=== PATIENT | female | born 1970 | race Caucasian/White ===

== ENCOUNTER 2019-07-01 19:42 | Inpatient (IN) | payer BC, OTHER ==
[~2019-07-01] VITALS: Ht 152.4 cm; Wt 66.0 kg
[~2019-07-01 19:42] MED LIST: CYCL-1 PO
[2019-07-01] MEDS ORDERED: ondansetron/PF 4mg/2ml inj IV ONE (20:40)
[2019-07-01] MEDS ORDERED: CefTRIAXone/D5W-Rocephin 1gm 50 ML IV ONE (20:40)
[2019-07-01 21:05] LABS: BASOPHILS % (AUTO) 0.1 % (0-1); EOSINOPHILS # (AUTO) 0.2 X10'3 (0-0.9); EOSINOPHILS % (AUTO) 2.3 % (0-6); HEMATOCRIT 39.1 % (35.0-45.0); HEMOGLOBIN 13.5 g/dl (12.0-16.0); LYMPHOCYTES # (AUTO) 0.4 X10'3 (1.1-4.8); LYMPHOCYTES % (AUTO) 4.5 % (21-51); MEAN CORPUSCULAR HEMOGLOBIN 31.9 PG (27.0-31.0); MEAN CORPUSCULAR HGB CONC 34.5 g/dL (33.0-36.5); MEAN CORPUSCULAR VOLUME 92.3 FL (78-98); MEAN PLATELET VOLUME 7.2 FL (7.4-10.4); MONOCYTES # (AUTO) 0.7 X10'3 (0-0.9); MONOCYTES % (AUTO) 7.5 % (2-12); NEUTROPHILS % (AUTO) 85.6 % (42-75); PLATELET COUNT 250 X10'3 (140-440); RED BLOOD COUNT 4.24 X10'6 (4.20-5.60); RED CELL DISTRIBUTION WIDTH 12.4 % (11.5-14.5); WHITE BLOOD COUNT 9.3 X10'3 (4.5-11.0)
[2019-07-01 21:29] LABS: ALANINE AMINOTRANSFERASE 52 U/L (12-78); ALBUMIN 3.1 G/DL (3.4-5.0); ALBUMIN/GLOBULIN RATIO 0.6 (1.1-1.5); ALKALINE PHOSPHATASE 116 IU/L (46-116); ANION GAP 10 (8-16); ASPARTATE AMINO TRANSFERASE 45 U/L (10-37); BILIRUBIN,TOTAL 0.5 MG/DL (0.1-1.0); BLOOD UREA NITROGEN 12 MG/DL (7-18); CALCIUM 9.6 MG/DL (8.5-10.1); CHLORIDE 99 MMOL/L (99-107); CREATININE 1.09 MG/DL (0.40-0.90); GLUCOSE 129 MG/DL (70-104); MAGNESIUM 1.9 MG/DL (1.5-2.4); POTASSIUM 3.7 MMOL/L (3.5-5.1); SODIUM 133 MMOL/L (135-145); TOTAL CARBON DIOXIDE 23.7 MMOL/L (24-32); eGFR 53 ML/MIN
[2019-07-01 21:41] LABS: PARTIAL THROMBOPLASTIN TIME 29 SECONDS (22-32)
[2019-07-01] MEDS ORDERED: normal saline 1000ML IV soln IV ONE (21:50)
[2019-07-01] MEDS ORDERED: acetaminophen 325mg tablet PO ONE (21:50)
[2019-07-01 22:22] LABS: CLARITY,URINE CLEAR (Clear); COLOR,URINE YELLOW (Yellow); GLUCOSE, URINE NEGATIVE (Neg); KETONES,URINE NEGATIVE (Neg); LEUKOCYTE ESTERASE ,URINE NEGATIVE (Neg); NITRITES, URINE NEGATIVE (Neg); OCCULT BLOOD,URINE MODERATE (Neg); PROTEIN,URINE TRACE mg/dl (Neg)
[2019-07-01 22:23] LABS: URINE HCG NEGATIVE (NEG)
[2019-07-01 22:29] LABS: UA COLLECTION TYPE CLN CATCH MIDSTREAM
[2019-07-01 22:30] LABS: BACTERIA,URINE NONE SEEN /HPF (Neg); MUCUS STRANDS FEW /LPF (Neg); RBC,URINE 0-2 /HPF (0-2); SQUAMOUS EPITHELIAL CELL,UR FEW /LPF (FEW); WBC,URINE NONE SEEN /HPF (0-4)
[2019-07-01] MEDS ORDERED: NO HOME MEDS (22:36)
[2019-07-01] MEDS ORDERED: acetaminophen 325mg tablet PO PRN ×2 (22:45)
[2019-07-01] MEDS ORDERED: magnesium hydroxide 30ml (MOM) UD suspension PO PRN (22:45)
[2019-07-01] MEDS ORDERED: HYDROcodone/acetaminophen 5mg/325mg tablet PO PRN (22:45)
[2019-07-01] MEDS ORDERED: ondansetron/PF 4mg/2ml inj IV PRN (22:45)
[2019-07-01] MEDS ORDERED: vancomycin/NS 1 GM ADD-VANTAGE 250 ML IV SCH (22:52)
--- NOTE | 2019-07-01 23:39 | NUR ---
Patient in room [facility] 350. I have received report from SUKI Howard RN and had the opportunity to ask questions and assume patient care. pt arrived at 2330 on the floor in no acute distress and denies any discomfort.
[2019-07-01 23:45] VITALS: BP 94/40
[2019-07-02] MEDS: normal saline 1000ml 1,000 ML IV SCH ×3 (00:40→18:41)
[2019-07-02] MEDS: mag hydrox/Alum hydrox/simeth 30ml oral suspension PO PRN ×2 (04:56→22:36)
[2019-07-02 05:27] LABS: ALBUMIN 2.4 G/DL (3.4-5.0); BLOOD UREA NITROGEN 14 MG/DL (7-18); BUN/CREATININE RATIO 15.4 (6.6-38.0); CALCIUM 8.3 MG/DL (8.5-10.1); CHLORIDE 108 MMOL/L (99-107); CREATININE 0.91 MG/DL (0.40-0.90); GLUCOSE 104 MG/DL (70-104); POTASSIUM 3.5 MMOL/L (3.5-5.1); TOTAL CARBON DIOXIDE 26.1 MMOL/L (24-32); eGFR 65 ML/MIN
[2019-07-02 05:31] LABS: BASOPHILS % (AUTO) 0.1 % (0-1); EOSINOPHILS # (AUTO) 0.2 X10'3 (0-0.9); EOSINOPHILS % (AUTO) 3.6 % (0-6); HEMATOCRIT 34.1 % (35.0-45.0); HEMOGLOBIN 11.9 g/dl (12.0-16.0); LYMPHOCYTES # (AUTO) 0.6 X10'3 (1.1-4.8); LYMPHOCYTES % (AUTO) 11.9 % (21-51); MEAN CORPUSCULAR VOLUME 91.4 FL (78-98); MEAN PLATELET VOLUME 7.2 FL (7.4-10.4); MONOCYTES # (AUTO) 0.6 X10'3 (0-0.9); MONOCYTES % (AUTO) 12.9 % (2-12); NEUTROPHILS # (AUTO) 3.5 X10'3 (1.8-7.7); NEUTROPHILS % (AUTO) 71.5 % (42-75); PLATELET COUNT 176 X10'3 (140-440); RED BLOOD COUNT 3.73 X10'6 (4.20-5.60); RED CELL DISTRIBUTION WIDTH 12.4 % (11.5-14.5); WHITE BLOOD COUNT 4.9 X10'3 (4.5-11.0)
[2019-07-02 05:37] LABS: ANION GAP 8 (8-16); SODIUM 142 MMOL/L (135-145)
--- NOTE | 2019-07-02 06:34 | NUR ---
Problems reprioritized. Patient report given, questions answered & plan of care reviewed with ANA LAURA Dietrich.
--- NOTE | 2019-07-02 06:53 | NUR ---
Patient in room [facility] 350. I have received report from Ingris Wahl RN and had the opportunity to ask questions and assume patient care.
[2019-07-02 07:00] VITALS: BP 88/41
[2019-07-02 07:55] VITALS: BP 88/53
[2019-07-02 08:02] VITALS: BP 90/60
[2019-07-02] MEDS: enoxaparin 40mg/0.4ml syringe SUBCUT SCH (08:08)
[2019-07-02 11:00] VITALS: BP 89/49
[2019-07-02] MEDS: vancomycin/NS 1 GM ADD-VANTAGE 250 ML IV SCH (13:26)
[2019-07-02 14:41] VITALS: BP 90/50
--- NOTE | 2019-07-02 14:44 | NUR ---
Patient has been having low BP since this am,initial SBP <90 when checked manually its 90/60. Dr. Menezes notified about this
[2019-07-02 18:00] VITALS: BP 93/51
--- NOTE | 2019-07-02 18:20 | NUR ---
Patient in room [facility] 350. I have received report from ANA LAURA Dietrich and had the opportunity to ask questions and assume patient care.
--- NOTE | 2019-07-02 18:37 | NUR ---
Problems reprioritized. Patient report given, questions answered & plan of care reviewed with Everett DU.
[2019-07-02] MEDS ORDERED: CefTRIAXone/D5W-Rocephin 1gm 50 ML IV SCH (20:00)
[2019-07-03] MEDS: vancomycin/NS 1 GM ADD-VANTAGE 250 ML IV SCH (00:12)
[2019-07-03 00:26] VITALS: BP 91/50
[2019-07-03] MEDS: normal saline 1000ml 1,000 ML IV SCH ×2 (04:41→06:56)
[2019-07-03 06:21] LABS: EOSINOPHILS # (AUTO) 0.2 X10'3 (0-0.9); LYMPHOCYTES # (AUTO) 1.4 X10'3 (1.1-4.8); NEUTROPHILS # (AUTO) 1.3 X10'3 (1.8-7.7); WHITE BLOOD COUNT 3.3 X10'3 (4.5-11.0)
[2019-07-03 06:25] LABS: BASOPHILS % (AUTO) 0.2 % (0-1); EOSINOPHILS % (AUTO) 6.2 % (0-6); HEMATOCRIT 35.5 % (35.0-45.0); HEMOGLOBIN 12.2 g/dl (12.0-16.0); LYMPHOCYTES % (AUTO) 42.5 % (21-51); MEAN CORPUSCULAR HEMOGLOBIN 31.9 PG (27.0-31.0); MEAN CORPUSCULAR HGB CONC 34.3 g/dL (33.0-36.5); MEAN CORPUSCULAR VOLUME 92.9 FL (78-98); MEAN PLATELET VOLUME 7.9 FL (7.4-10.4); MONOCYTES # (AUTO) 0.4 X10'3 (0-0.9); MONOCYTES % (AUTO) 12.2 % (2-12); NEUTROPHILS % (AUTO) 38.9 % (42-75); PLATELET COUNT 182 X10'3 (140-440); RED BLOOD COUNT 3.82 X10'6 (4.20-5.60); RED CELL DISTRIBUTION WIDTH 12.8 % (11.5-14.5)
--- NOTE | 2019-07-03 06:29 | NUR ---
Problems reprioritized. Patient report given, questions answered & plan of care reviewed with ANA LAURA Dietrich.
[2019-07-03 06:30] LABS: ALBUMIN 2.6 G/DL (3.4-5.0); ANION GAP 8 (8-16); BLOOD UREA NITROGEN 10 MG/DL (7-18); BUN/CREATININE RATIO 11.9 (6.6-38.0); CALCIUM 8.9 MG/DL (8.5-10.1); CHLORIDE 109 MMOL/L (99-107); CREATININE 0.84 MG/DL (0.40-0.90); GLUCOSE 99 MG/DL (70-104); POTASSIUM 3.7 MMOL/L (3.5-5.1); SODIUM 144 MMOL/L (135-145); TOTAL CARBON DIOXIDE 26.7 MMOL/L (24-32); eGFR 72 ML/MIN
--- NOTE | 2019-07-03 06:41 | NUR ---
Patient in room [facility] 350. I have received report from Everett DU and had the opportunity to ask questions and assume patient care.
[2019-07-03] MEDS: enoxaparin 40mg/0.4ml syringe SUBCUT SCH (06:57)
[2019-07-03 07:00] VITALS: BP 90/45
--- NOTE | 2019-07-03 10:21 | NUR ---
Dr. Jimenez notified about positive MRSA swab. Patient has been notified about this too
[2019-07-03] MEDS ORDERED: CEPH500C2 PO (10:33)
[2019-07-03] MEDS ORDERED: ONDA4TAB6 PO (10:33)
[2019-07-03 11:00] VITALS: BP 92/42
[2019-07-03] MEDS ORDERED: VANCOMYCIN LEVEL IV ONE (11:30)
--- NOTE | 2019-07-03 11:40 | NUR ---
Discharged patient home, discharge instructions given to patient. Patient verbalized understanding of all instructions made. Peripheral IV catheter removed, tip intact. New prescriptions called in to [facility] at [facility]. Instructed patient to ensure she has all her belongings with her
== END 2019-07-03 11:40 | disposition home or self-care (01) | DRG 603 ==
LOC: ER 19:42 → SUR 3N 23:33 → CMPBEDREQ 07-02 00:08
PROVIDERS: ADMIT Hospitalist; ATTEND Internal Medicine
DX: L03.115 Cellulitis of right lower limb (principal); E87.1 Hypo-osmolality and hyponatremia; F17.210 Nicotine dependence, cigarettes, uncomplicated; E86.0 Dehydration; I95.9 Hypotension, unspecified; N28.9 Disorder of kidney and ureter, unspecified; F15.19 Other stimulant abuse with unspecified stimulant-induced disorder; Z98.891 History of uterine scar from previous surgery; Z88.1 Allergy status to other antibiotic agents; Z79.899 Other long term (current) drug therapy
CPT/HCPCS: 36415; 80048; 80053; 81001; 81025; 83605; 83735; 84145; 85025; 85610; 85730; 87040; 87081; 96365; 96366; 96375; 99285; G0378; J0696; J1650; J2405; J3370; J7030

== ENCOUNTER 2020-07-26 13:29 | Inpatient (IN) | payer BC ==
[~2020-07-26] VITALS: Ht 152.4 cm; Wt 68.0 kg
[~2020-07-26 13:29] MED LIST changes: -CYCL-1 PO; +ONDA4TAB6 PO
[2020-07-26] MEDS ORDERED: CefTRIAXone 2gm/D5W 50ml 50 ML IV ONE (14:20)
[2020-07-26] MEDS ORDERED: normal saline 1000ML IV soln IV ONE (14:20)
--- NOTE | 2020-07-26 14:29 | NUR ---
pt c/o dyspnea "I don't feel well", Maximo GARCIA aware, pt moved to room 12 from outside, report to Courtney DU
[2020-07-26] MEDS ORDERED: DOXYCYCLINE 100MG CAPSULE PO STA (14:48)
[2020-07-26] MEDS ORDERED: dexamethasone sod phosphate 10mg/ml inj IV STA (14:48)
[2020-07-26 15:22] LABS: BASOPHILS % (AUTO) 0.3 % (0-1); EOSINOPHILS # (AUTO) 0.1 X10'3 (0-0.9); EOSINOPHILS % (AUTO) 0.7 % (0-6); HEMATOCRIT 42.7 % (35.0-45.0); HEMOGLOBIN 14.3 g/dl (12.0-16.0); LYMPHOCYTES # (AUTO) 0.5 X10'3 (1.1-4.8); LYMPHOCYTES % (AUTO) 3.4 % (21-51); MEAN CORPUSCULAR HEMOGLOBIN 31.4 PG (27.0-31.0); MEAN CORPUSCULAR HGB CONC 33.5 g/dL (33.0-36.5); MEAN CORPUSCULAR VOLUME 93.6 FL (78-98); MEAN PLATELET VOLUME 7.1 FL (7.4-10.4); MONOCYTES # (AUTO) 0.7 X10'3 (0-0.9); MONOCYTES % (AUTO) 4.5 % (2-12); NEUTROPHILS # (AUTO) 13.2 X10'3 (1.8-7.7); NEUTROPHILS % (AUTO) 91.1 % (42-75); PLATELET COUNT 212 X10'3 (140-440); RED BLOOD COUNT 4.56 X10'6 (4.20-5.60); RED CELL DISTRIBUTION WIDTH 12.5 % (11.5-14.5); WHITE BLOOD COUNT 14.5 X10'3 (4.5-11.0)
[2020-07-26 15:34] LABS: D-DIMER 0.33 MG/L FEU (0-0.50)
[2020-07-26 15:36] LABS: ALANINE AMINOTRANSFERASE 30 U/L (12-78); ALKALINE PHOSPHATASE 100 IU/L (46-116); ANION GAP 6 (8-16); ASPARTATE AMINO TRANSFERASE 17 U/L (10-37); BILIRUBIN,TOTAL 0.7 MG/DL (0.1-1.0); BLOOD UREA NITROGEN 16 MG/DL (7-18); CALCIUM 9.3 MG/DL (8.5-10.1); CHLORIDE 100 MMOL/L (99-107); CREATININE 0.89 MG/DL (0.40-0.90); GLUCOSE 113 MG/DL (70-104); POTASSIUM 3.8 MMOL/L (3.5-5.1); SODIUM 136 MMOL/L (135-145); TOTAL CARBON DIOXIDE 30.3 MMOL/L (24-32); eGFR 67 ML/MIN
[2020-07-26] MEDS ORDERED: ondansetron 4mg rapidly disintigrating tab PO ONE (15:55)
--- NOTE | 2020-07-26 16:02 | NUR ---
PT C/O CHEST PAIN, SOB AND NOT FEELING WELL. OXYGEN BETWEEN 88 AND 91%. ALSO C/O NAUSEA. NOTIFY PROVIDER. APPLY OXYGEN AT 3 LITERS. PT STATES HER CHEST HURTS WITH COUGHING AND TAKING A DEEP BREATH. PT NOW 98% ON 3 LITERS. RR RATE IMPROVES AND IS DOWN FROM 38 TO 28. PT UNABLE TO TAKE ORAL MEDICATION. AGREES TO TAKE THE ORAL ZOFRAN FOR NAUSEA.
--- NOTE | 2020-07-26 16:14 | NUR ---
SWAB PT FOR RAPID COVID.
--- NOTE | 2020-07-26 16:14 | NUR ---
CALLIE ALEMAN SPOKE WITH DR. JEAN-BAPTISTE AND GOT AUTHORIZATION FOR RAPID COVID
[2020-07-26] MEDS ORDERED: NO HOME MEDS (16:22)
--- NOTE | 2020-07-26 16:22 | NUR ---
RT IN ROOM FOR ABG'S
[2020-07-26 16:41] LABS: ABG BASE EXCESS -2.9 mmol/L (-2.0-2.0); ABG HCO3 21.8 mmol/L (22.0-26.0); ABG OXYGEN SATURATION 94.4 % (94-97); ABG PCO2 (T) 37.6 mmHg (32.0-45.0); ABG PO2 (T) 75.7 mmHg (75.0-100.0); ALLEN'S TEST POSITIVE; FCOHb 1.7 % (0.0-3.9); FMetHb 0.3 % (0.0-1.5); FO2Hb 92.5 % (94-97); PATIENT TEMPERATURE 36.8; TOTAL HEMOGLOBIN 12.5 G/dl (12.0-16.0)
--- NOTE | 2020-07-26 16:49 | NUR ---
TURN OXYGEN OFF ORDERED BY PROVIDER ASH. WILL REASSESS TO SEE WHERE OXYGEN LEVEL GOES.
--- NOTE | 2020-07-26 17:11 | NUR ---
PER PROVIDER PT'S OXYGEN SATS FALL TO 85% AFTER TURNING OFF THE OXYGEN. PROVIDER TURNS THE OXYGEN BACK TO 3 LITERS AND PT IS NOW 97%.
[2020-07-26 17:24] LABS: C-REACTIVE PROTEIN 5.82 MG/DL (0.0-0.5); LACTATE DEHYDROGENASE 175 U/L (81-234)
--- NOTE | 2020-07-26 17:50 | NUR ---
PT PLACED ON BEDSIDE COMMODE.
[2020-07-26] MEDS ORDERED: acetaminophen 325mg tablet PO PRN ×2 (17:55)
[2020-07-26] MEDS ORDERED: potassium CL 10mEq/100ml bag 100 ML IV PRN ×2 (17:55)
[2020-07-26] MEDS ORDERED: bisacodyl 10mg suppository rectal RC PRN (17:55)
[2020-07-26] MEDS ORDERED: normal saline 1000ml 1,000 ML IV SCH (17:55)
[2020-07-26] MEDS ORDERED: magnesium 2GM in 50ml NS 50 ML IV PRN (17:55)
[2020-07-26] MEDS ORDERED: potassium Cl 20 mEq SR tablet PO PRN ×2 (17:55)
[2020-07-26] MEDS ORDERED: HYDROcodone/acetaminophen 5mg/325mg tablet PO PRN (17:55)
[2020-07-26] MEDS ORDERED: ondansetron/PF 4mg/2ml inj IV PRN (17:55)
[2020-07-26] MEDS ORDERED: magnesium Cl slow-release 64mg tablet PO PRN (17:55)
[2020-07-26] MEDS ORDERED: acetaminophen 650mg rectal suppository RC PRN (17:55)
[2020-07-26] MEDS ORDERED: magnesium hydroxide 30ml (MOM) UD suspension PO PRN (17:55)
[2020-07-26] MEDS ORDERED: HYDROcodone/acetaminophen 10/325mg tab PO PRN (17:55)
[2020-07-26] MEDS ORDERED: morphine 2 MG/ML inj. syringe IV PRN ×2 (17:55)
[2020-07-26] MEDS ORDERED: diphenhydrAMINE 25mg capsule PO PRN (17:55)
[2020-07-26] MEDS ORDERED: mag hydrox/Alum hydrox/simeth 30ml oral suspension PO PRN (17:55)
[2020-07-26] MEDS ORDERED: magnesium 4gm in 100ml NS 100 ML IV PRN (17:55)
--- NOTE | 2020-07-26 18:19 | NUR ---
PT STATES THAT HER BOYFRIEND IS BRINGING HER FOOD.
[2020-07-26 18:32] LABS: HEMOGLOBIN A1C 5.3 % (4.5-6.2)
[2020-07-26] MEDS: levoFLOXACIN-Levaquin 750MG/D5 150 ML IV SCH (19:11)
[2020-07-26] MEDS ORDERED: K and/or MAG REPLACEMENT MC SCH (20:00)
[2020-07-26 20:20] VITALS: BP 107/72
--- NOTE | 2020-07-26 20:20 | NUR ---
Patient in room PCU 3012. I have received report from Ingris DU in the ER and had the opportunity to ask questions and assume patient care. Patient was transported by trisharmu to room 3012A and was feeling very anxious about having to be admitted to the hospital. She was SOB but O2 sat was at 97%.
[2020-07-26] MEDS: methylPREDNISolone sod succ 125mg/2ml vial IV SCH (20:30)
[2020-07-26] MEDS: heparin, porcine 5000 units/ml vial SQ SCH (20:31)
[2020-07-26] MEDS: ipratropium/albuterol 3ml nebule NEB SCH ×2 (20:56→23:44)
[2020-07-26] MEDS ORDERED: LORazepam 2 mg/ml vial IM ONE (22:35)
[2020-07-26 22:49] LABS: URINE HCG NEGATIVE (NEG)
[2020-07-26 22:50] LABS: CLARITY,URINE CLEAR (Clear); COLOR,URINE YELLOW (Yellow); GLUCOSE, URINE >=1000 mg/dl (Neg); KETONES,URINE NEGATIVE (Neg); LEUKOCYTE ESTERASE ,URINE NEGATIVE (Neg); NITRITES, URINE POSITIVE (Neg); OCCULT BLOOD,URINE TRACE-LYSED (Neg); PROTEIN,URINE NEGATIVE (Neg)
[2020-07-26 22:57] LABS: UA COLLECTION TYPE CLN CATCH MIDSTREAM
[2020-07-26 22:58] LABS: BACTERIA,URINE FEW /HPF (Neg); RBC,URINE 0-2 /HPF (0-2); SQUAMOUS EPITHELIAL CELL,UR FEW /LPF (FEW); WBC,URINE 0-4 /HPF (0-4)
[2020-07-26 23:05] LABS: URINE AMPHETAMINE SCREEN POSITIVE (Neg); URINE BARBITUATE SCREEN NEGATIVE (Neg); URINE BENZODIAZEPINES SCREEN NEGATIVE (Neg); URINE CANNABINOID SCREEN NEGATIVE (Neg); URINE COCAINE SCREEN NEGATIVE (Neg); URINE METHADONE SCREEN NEGATIVE (Neg); URINE OPIATE SCREEN NEGATIVE (Neg); URINE PHENCYCLIDINE SCREEN NEGATIVE (Neg)
[2020-07-27] MEDS: methylPREDNISolone sod succ 125mg/2ml vial IV SCH ×2 (01:23→07:47)
[2020-07-27 02:00] VITALS: BP 110/76
[2020-07-27] MEDS: ipratropium/albuterol 3ml nebule NEB SCH ×3 (04:51→11:39)
[2020-07-27 05:17] LABS: BASOPHILS # (AUTO) 0.1 X10'3 (0-0.2); BASOPHILS % (AUTO) 0.4 % (0-1); EOSINOPHILS % (AUTO) 0 % (0-6); HEMATOCRIT 38.2 % (35.0-45.0); HEMOGLOBIN 12.8 g/dl (12.0-16.0); LYMPHOCYTES # (AUTO) 0.4 X10'3 (1.1-4.8); LYMPHOCYTES % (AUTO) 3.3 % (21-51); MEAN CORPUSCULAR HEMOGLOBIN 31.4 PG (27.0-31.0); MEAN CORPUSCULAR HGB CONC 33.5 g/dL (33.0-36.5); MEAN CORPUSCULAR VOLUME 93.8 FL (78-98); MEAN PLATELET VOLUME 7.5 FL (7.4-10.4); MONOCYTES # (AUTO) 0.1 X10'3 (0-0.9); MONOCYTES % (AUTO) 0.5 % (2-12); NEUTROPHILS # (AUTO) 12.4 X10'3 (1.8-7.7); NEUTROPHILS % (AUTO) 95.8 % (42-75); PLATELET COUNT 200 X10'3 (140-440); RED BLOOD COUNT 4.07 X10'6 (4.20-5.60); RED CELL DISTRIBUTION WIDTH 12.5 % (11.5-14.5); WHITE BLOOD COUNT 12.9 X10'3 (4.5-11.0)
[2020-07-27 05:27] LABS: ALANINE AMINOTRANSFERASE 33 U/L (12-78); ALBUMIN/GLOBULIN RATIO 0.8 (1.1-1.5); ALKALINE PHOSPHATASE 83 IU/L (46-116); ANION GAP 10 (8-16); ASPARTATE AMINO TRANSFERASE 17 U/L (10-37); BILIRUBIN,TOTAL 0.2 MG/DL (0.1-1.0); BLOOD UREA NITROGEN 12 MG/DL (7-18); BUN/CREATININE RATIO 13.2 (6.6-38.0); CALCIUM 8.5 MG/DL (8.5-10.1); CHLORIDE 105 MMOL/L (99-107); CREATININE 0.91 MG/DL (0.40-0.90); GLUCOSE 197 MG/DL (70-104); HDL CHOLESTEROL 54 MG/DL (35-60); LDL CHOLESTEROL 133 MG/DL (50-100); MAGNESIUM 1.7 MG/DL (1.5-2.4); PHOSPHORUS 2.2 MG/DL (2.3-4.5); POTASSIUM 3.8 MMOL/L (3.5-5.1); SODIUM 139 MMOL/L (135-145); TOTAL CARBON DIOXIDE 24.2 MMOL/L (24-32); TOTAL PROTEIN 6.8 G/DL (6.4-8.2); TRIGLYCERIDES 61 MG/DL (20-135); eGFR 65 ML/MIN
[2020-07-27 05:56] LABS: CHOL/HDL RATIO 3.5 (0.00-4.99); CHOLESTEROL 190 MG/DL (0-200)
[2020-07-27 06:30] VITALS: BP 122/65
--- NOTE | 2020-07-27 06:30 | NUR ---
Patient in room PCU 3012. I have received report from Vianey DU and had the opportunity to ask questions and assume patient care.
--- NOTE | 2020-07-27 06:46 | NUR ---
Problems reprioritized. Patient report given, questions answered & plan of care reviewed with Munir DU. Patient was resting comfortably with a sitter at his bedside. No acute distress was noted. Addendum: 07/27/20 at 0652 by Yin Bernabe RN Problems reprioritized. Patient report given, questions answered & plan of care reviewed with Kaur DU. Patient was resting comfortably with a sitter at his bedside. No acute distress was noted.
[2020-07-27] MEDS: levoFLOXACIN-Levaquin 750MG/D5 150 ML IV SCH (07:47)
[2020-07-27] MEDS: heparin, porcine 5000 units/ml vial SQ SCH (07:48)
[2020-07-27 11:00] VITALS: BP 117/71
--- NOTE | 2020-07-27 12:49 | NUR ---
Patient went AMA, patient left with all her belongings with her. Peripheral IV catheter removed, tip intact. Drea DU, charge nurse and Dr. Kraft were aware about AMA. I spoke to patient's Giulia Rodriguez over the phone, I let him know that patient intend to leave against medica advice. Patient stated that she will go to [facility] to get her record for UA result and ask the doctor if she can continue her previously prescribed Macrobid for UTI or if it needs to be change into something stronger. Patient was advised to go to ER if her condition worsen.
--- NOTE | 2020-07-27 13:27 | NUR ---
Patient has medication Buspirone stored in the hospital pharmacy, patient forgot this medication to take with her. I called patient's gian Rodriguez at the number provided [phone] as I do not have patient's cellphone number. I left voicemail message to have him or patient come back to the hospital to peanut picker the stored medication at the hospital pharmacy.wheel alignment technician was notified that this patient forget to get her Buspirone back upon discharge.
== END 2020-07-27 12:52 | disposition left against medical advice (07) | DRG 193 ==
LOC: ER 13:30 → ED HOLD 17:52 → PCU 3S 19:59 → CMPBEDREQ 23:22
PROVIDERS: ADMIT Family Medicine; ATTEND Family Medicine
DX: J18.9 Pneumonia, unspecified organism (principal); J96.91 Respiratory failure, unspecified with hypoxia; J44.0 Chronic obstructive pulmonary disease with (acute) lower respiratory infection; J44.1 Chronic obstructive pulmonary disease with (acute) exacerbation; N39.0 Urinary tract infection, site not specified; F17.210 Nicotine dependence, cigarettes, uncomplicated; F41.9 Anxiety disorder, unspecified; Z20.828 Contact with and (suspected) exposure to other viral communicable diseases; Z82.0 Family history of epilepsy and other diseases of the nervous system; F15.10 Other stimulant abuse, uncomplicated; Z82.3 Family history of stroke; Z82.49 Family history of ischemic heart disease and other diseases of the circulatory system; Z83.3 Family history of diabetes mellitus; Z87.440 Personal history of urinary (tract) infections; Z98.891 History of uterine scar from previous surgery; Z88.8 Allergy status to other drugs, medicaments and biological substances; Z53.29 Procedure and treatment not carried out because of patient's decision for other reasons
CPT/HCPCS: 36415; 36600; 71045; 80053; 80061; 80305; 81001; 81025; 82803; 83036; 83605; 83615; 83735; 84100; 84145; 85018; 85025; 85379; 86140; 87040; 87081; 87088; 87635; 93005; 93306; 93308; 94640; 94760; 96365; 96375; 99285; G0378; J0696; J1100; J1644; J1956; J2060; J2930; J7030

== ENCOUNTER 2021-04-01 02:18 | Emergency (ER) | payer BC ==
[~2021-04-01] VITALS: Ht 152.4 cm; Wt 68.2 kg
[~2021-04-01 02:18] MED LIST changes: +NO HOME MEDS; -ONDA4TAB6 PO
--- NOTE | 2021-04-01 05:00 | NUR ---
Admits to cigarette smoking and smoking methamphetamine
[2021-04-01] MEDS ORDERED: SUCR1TAB34 PO (05:16)
[2021-04-01 05:26] VITALS: BP 144/78
== END 2021-04-01 05:26 | disposition home or self-care (01) ==
LOC: ER 02:19
DX: J41.0 Simple chronic bronchitis (principal); K21.9 Gastro-esophageal reflux disease without esophagitis; F17.210 Nicotine dependence, cigarettes, uncomplicated
CPT/HCPCS: 71045; 93005; 99283

== ENCOUNTER 2022-09-29 20:32 | Emergency (ER) | payer BC ==
[~2022-09-29] VITALS: Ht 152.4 cm; Wt 68.2 kg
[~2022-09-29 20:32] MED LIST changes: +SUCR1TAB34 PO
== END 2022-09-29 22:08 | disposition left against medical advice (07) ==
LOC: ER 20:32
DX: R05.9 Cough, unspecified (principal); Z53.21 Procedure and treatment not carried out due to patient leaving prior to being seen by health care provider

== ENCOUNTER 2025-07-18 15:35 | Emergency (ER) | payer SELFPAY ==
[~2025-07-18] VITALS: Ht 152.4 cm; Wt 67.1 kg
[2025-07-18 15:39] VITALS: BP 129/81; PULSE 98; RESP 18; TEMP 97.6; O2SAT 98
[2025-07-18 16:15] LABS: MEAN PLATELET VOLUME 7.5 FL (7.4-10.4); RED CELL DISTRIBUTION WIDTH 12.4 % (11.5-14.5)
[2025-07-18 16:16] LABS: LEUKOCYTE ESTERASE ,URINE NEGATIVE (Neg); NITRITES, URINE NEGATIVE (Neg); OCCULT BLOOD,URINE SMALL (Neg); URINE HCG NEGATIVE (NEG)
[2025-07-18 16:19] LABS: UA COLLECTION TYPE CLN CATCH MIDSTREAM
[2025-07-18 16:26] LABS: MUCUS STRANDS MODERATE /LPF (Neg); SQUAMOUS EPITHELIAL CELL,UR MODERATE /LPF (FEW)
[2025-07-18 16:33] LABS: CREATININE 0.68 MG/DL (0.40-0.90); TOTAL CARBON DIOXIDE 29.3 MMOL/L (24-32); eCRCL 66 ML/MIN; eGFR 90 ML/MIN
[2025-07-19] MEDS ORDERED: PRED20TA PO (15:23)
[2025-07-19] MEDS ORDERED: METR-159 PO (15:23)
== END 2025-07-18 22:33 | disposition left against medical advice (07) ==
LOC: ER 15:35
DX: R10.31 Right lower quadrant pain (principal); R10.32 Left lower quadrant pain; R19.7 Diarrhea, unspecified; Z53.21 Procedure and treatment not carried out due to patient leaving prior to being seen by health care provider; Z88.1 Allergy status to other antibiotic agents; Z88.8 Allergy status to other drugs, medicaments and biological substances; Z88.2 Allergy status to sulfonamides
CPT/HCPCS: 36415; 80053; 81001; 81025; 83690; 85025

== ENCOUNTER 2025-07-19 04:44 | Emergency (ER) | payer SELFPAY ==
[~2025-07-19] VITALS: Ht 152.4 cm; Wt 67.2 kg
[2025-07-19 05:48] LABS: CREATININE 0.82 MG/DL (0.40-0.90); TOTAL CARBON DIOXIDE 28.3 MMOL/L (24-32); eCRCL 55 ML/MIN; eGFR 72 ML/MIN
[2025-07-19 05:52] LABS: MEAN PLATELET VOLUME 8.0 FL (7.4-10.4); RED CELL DISTRIBUTION WIDTH 12.5 % (11.5-14.5)
[2025-07-19] MEDS ORDERED: pantoprazole 40mg IV 80 MG in normal saline 100ml IV soln 100 ML IV ONE (07:10)
--- NOTE | 2025-07-19 07:18 | Physician Documentation ---
History of Present Illness ~ Chief Complaint: Bloody Stools Stated Complaint: GI BLEED Time Seen by MD: 06:51 Primary Medical Doctor: NONE Mode of Arrival: POV HPI 55-year-old female with a history of gastric ulcers and gastritis presenting with abdominal pain and bloody stools for the past three days. She reports that her abdominal pain is diffuse throughout her entire stomach. It came on gradually over the past three days and has been worsening. Pain has been constant and it does not radiate. It is not improved or worsened by anything that she does. She also endorses nausea but no vomiting. Patient also reports significant bloody stools. She reports that every time she tries to have a bowel movement there is only bright red blood. She has gradually also become more and more weak. She states that she is on omeprazole daily for her ulcers but it does not seem to be working. Patient uses alcohol occasionally but denies any heavy use. Also states that she will occasionally use methamphetamines but denies any heavy use. Denies any surgeries on her abdomen. No reports of any fever, chills or any other associated symptoms. Medication Reconciliation Allergies: Coded Allergies: clindamycin (Unverified Allergy, Unknown, 04/01/21) HIVES sulfamethoxazole (Unverified Allergy, Unknown, 04/01/21) trimethoprim (Unverified Allergy, Unknown, 04/01/21) Scheduled Metronidazole* (Flagyl*), 1 TAB PO Q8H Prednisone* (Prednisone*), 2 TAB PO DAILY Sucralfate (Carafate), 1 TAB PO ACHS Miscellaneous Medications Home Med List (No Home Medications), (Reported) Past Medical History Past Medical History: No Pertinent History Past Surgical History: Patient History: FH: diabetes mellitus FATHER GRANDFATHER OR GRANDMOTHER Alcohol Use: Occasionally Drug Use: none, methamphetamine Lives with: Family Lives In: Home Occupation: employed Review of Systems All Other Systems at this time: Reviewed and Negative Physical Exam Vital Signs: Temperature: 98.4, Source: Oral, Heart Rate: 84, Respiratory Rate: 16, BP: 159/95, Pulse Oximetry: 99, Weight: 67.200 Oxygen Flow Rate: 0 Physical Exam I have reviewed the triage vitals. CONST: Well developed and well nourished. In no acute distress HENT: Head Atraumatic EYES: Pupils are equal, round and reactive to light. Normal conjunctiva NECK: Normal range of motion. Supple. CARDIO: Normal rate and regular rhythm. No murmurs, rubs, or gallops. S1, S2. PULM/CHEST: No respiratory distress. Lungs clear to auscultation. No wheeze ABD: Soft, diffusely tender to palpation. Nondistended. Bowel sounds normal. No guarding. : Exam deferred MSK: No edema. No deformity. NEURO: Alert and oriented to person, place and time. Moving all extremities SKIN: Warm and dry. PSYCH: Normal mood and affect. Good eye contact. Progress Results/Orders Results/Orders Orders - EMILIANO VO MD Ct Abdomen Pelvis (07/19/25 09:47) Occult Bld Stool (07/19/25 08:38) Completed Orders - EMILIANO VO MD Ct Abdomen Pelvis (07/19/25 09:47) Diatr Meglu/Diatrizoate 30ml (Gastrograf (07/19/25 07:10) Normal Saline 1000ml (0.9% Sodium Chlori (07/19/25 07:10) Ondansetron Inj. (Zofran 4mg/2ml Vial) (07/19/25 07:10) Morphine 2mg/Ml Inj. (Morphine Inj.) (07/19/25 07:15) Pt Inr (07/19/25 07:18) PTT (07/19/25 07:18) Pantoprazole 40mg Iv (Protonix 40mg Iv) (07/19/25 07:30) Iohexol 300mg/Ml 100ml Inj. (Omnipaque-3 (07/19/25 07:37) Morphine 4mg/Ml Inj. (Morphine Inj.) (07/19/25 08:15) Vital Signs 07/19/25 07/19/25 07/19/25 07/19/25 05:04 07:04 07:11 08:30 Temp 97.7 98.4 Pulse 106 84 Resp 16 16 16 16 B/P (MAP) 128/80 159/95 (116) Pulse Ox 98 99 O2 Flow Rate 0 0 07/19/25 07/19/25 07/19/25 07/19/25 08:33 09:27 10:30 11:15 Pulse 87 90 90 89 Resp 14 14 15 16 B/P (MAP) 145/82 (103) 95/61 (72) 111/71 (84) 97/63 (74) Pulse Ox 99 96 95 98 O2 Flow Rate 0 0 0 0 07/19/25 07/19/25 12:01 15:50 Temp 98.4 Pulse 90 78 Resp 14 16 B/P (MAP) 119/72 (88) 115/74 Pulse Ox 99 98 O2 Flow Rate 0 Laboratory Tests Test 07/19/25 05:19 07/19/25 08:10 07/19/25 11:20 White Blood Count 10.5 Red Blood Count 4.90 Hemoglobin 15.2 Hematocrit 44.4 Mean Corpuscular Volume 90.6 Mean Corpuscular Hemoglobin 31.0 Mean Corpuscular Hemoglobin Concent 34.2 Red Cell Distribution Width 12.5 Platelet Count 277 Mean Platelet Volume 8.0 Neutrophils (%) (Auto) 71.2 Lymphocytes (%) (Auto) 18.8 L Monocytes (%) (Auto) 9.0 Eosinophils (%) (Auto) 0.8 Basophils (%) (Auto) 0.2 Neutrophils # (Auto) 7.5 Lymphocytes # (Auto) 2.0 Monocytes # (Auto) 0.9 Eosinophils # (Auto) 0.1 Basophils # (Auto) 0.0 CBC Comment Sodium Level 139 Potassium Level 3.8 Chloride Level 101 Carbon Dioxide Level 28.3 Anion Gap 10 Blood Urea Nitrogen 16 Creatinine 0.82 Estimated GFR/1.73 m2 72 BUN/Creatinine Ratio 19.5 Glucose Level 120 H Calcium Level 9.2 Total Bilirubin 1.0 Aspartate Amino Transf (AST/SGOT) 19 Alanine Aminotransferase (ALT/SGPT) 35 Alkaline Phosphatase 117 H Total Protein 7.5 Albumin 3.5 Globulin 4.0 Albumin/Globulin Ratio 0.9 L Lipase 30 Chemistry Comments Prothrombin Time 10.9 INR International Normalized Ratio 1.1 Activated Partial Thromboplast Time 26 Coagulation Comments Urine Specimen Description Cln catch midstream Urine Color Yellow Urine Clarity Clear Urine pH 5.5 Urine Specific [place] <=1.005 Urine Protein Negative Urine Glucose (UA) Negative Urine Ketones Trace H Urine Occult Blood Small Urine Nitrite Negative Urine Bilirubin Negative Urine Urobilinogen 0.2 Urine Leukocyte Esterase Negative Urine RBC 0-2 Urine WBC None seen Urine Squamous Epithelial Cells Moderate Urine Bacteria None seen Urine Culture Indicated Not ind Volume Urine Centrifuged 10 ml Urine HCG, Qualitative Negative Urine Comment EKG/XRAY/CT/US/VASC/MRI CT : Impression Exam: CT CT ABDOMEN PELVIS W/ IV ORAL CONTRAST History: abdominal pain w/ bloody stools COMPARISON: None Technique: Multidetector spiral CT of the abdomen and pelvis was performed from lung bases to pubic symphysis. Intravenous contrast was administered during this examination. Portal venous imaging was obtained. Axial, coronal and sagittal multiplanar reformats were performed by the technologist on a separate workstation. Radiation Dose : 1. Abdomen/Pelvis: CTDIvol 17.1 mGy, DLP 117 mGy*cm. Findings: Lung Bases: Dependent atelectasis. Liver: Hepatic steatosis. The liver is normal in size. No focal lesions. Normal hepatic vascular enhancement. Gallbladder and Biliary Tree: Unremarkable Spleen: Unremarkable Pancreas: The pancreas is normal in appearance without focal lesions or abnormal enhancement. Adrenal Glands: Unremarkable Kidneys: No hydronephrosis. Bladder: Unremarkable Bowel: Severe diffuse colonic bowel wall thickening, most severe in the ascending and transverse colon. The stomach is grossly normal in appearance. Small bowel is normal in caliber and distribution. The appendix is not visualized; however, no secondary findings of acute appendicitis identified. Ascites: Absent Lymphadenopathy: No mesenteric, retroperitoneal or periportal lymphadenopathy. Abdominal Wall and Mesentery: Unremarkable. Vasculature: The visualized abdominal aorta is normal in size and caliber. Abdominal and pelvic vessels demonstrate normal enhancement. Pelvic Organs: Unremarkable Musculoskeletal: No aggressive focal bony lesions, acute fractures or dislocation. IMPRESSION: Severe diffuse colonic bowel wall thickening, most severe in the ascending and transverse colon. Findings are suggestive of infectious or inflammatory colitis. Radiation optimization: All CT scans at this facility use at least one of these dose optimization techniques: automated exposure control mA and/or kV adjustment per patient size (includes targeted exams where dose is matched to clinical indication) or iterative reconstruction. Medical Decision Making Additional Comments 55-year-old female presenting with a appears to be acute inflammatory colitis. Patient's lab work is unremarkable. CT of the abdomen and pelvis did indicate nonspecific inflammatory colitis. Given that the patient has been symptomatic for several days believe it is prudent to treat it. The etiology of her symptoms may be due to potential inflammatory colitis from inflammatory bowel disease versus infectious etiology versus other etiologies. He does not have a high white count and a do not believe that this is C diff. Given the duration of her symptoms we will go ahead and treat her with Flagyl however as well as a course of prednisone. Patient is otherwise stable and her exam is benign. Patient was advised to take the medication as prescribed and stick to a liquid diet for the next several days and advance as tolerated. Advised to follow up with the primary care physician in the next 1-2 weeks. Return to the ED with any acutely worsening symptoms. Departure Disposition: 01 HOME / SELF CARE / HOMELESS Impression: Primary Impression: Non-specific colitis Condition: Improved Discharge Instructions: Colitis Referrals: NO PRIMARY CARE PROVIDER (PCP) Prescriptions Prednisone* (Prednisone*) 20 Mg Tablet 2 TAB PO DAILY, #10 TAB Prov: EMILIANO VO MD 07/19/25 Metronidazole* (Flagyl*) 500 Mg Tablet 1 TAB PO Q8H for 10 Days, #30 TAB Prov: EMILIANO VO MD 07/19/25 Signature Scribe Signature: 1 Attestation: 1 EMILIANO VO MD Jul 19, 2025 07:18
[2025-07-19] MEDS ORDERED: iohexol 300mg/ml 100ml inj. ONE (07:37)
[2025-07-19] MEDS: normal saline 1000ml 1,000 ML IV ONE (08:02)
[2025-07-19] MEDS: ondansetron/PF 4mg/2ml inj IV ONE (08:02)
[2025-07-19] MEDS: diatr meglu/diatrizoate 30ml oral sol.-(3 dose) bottle PO SCH (08:03)
[2025-07-19] MEDS: morphine 4 MG/ML inj SYRINge IV ONE (08:30)
[2025-07-19 08:47] LABS: APTT 26 SECONDS (22-32); INR 1.1 INR
[2025-07-19 11:34] LABS: LEUKOCYTE ESTERASE ,URINE NEGATIVE (Neg); NITRITES, URINE NEGATIVE (Neg); OCCULT BLOOD,URINE SMALL (Neg)
[2025-07-19 11:37] LABS: UA COLLECTION TYPE CLN CATCH MIDSTREAM
[2025-07-19 11:40] LABS: SQUAMOUS EPITHELIAL CELL,UR MODERATE /LPF (FEW)
[2025-07-19 11:47] LABS: URINE HCG NEGATIVE (NEG)
--- NOTE | 2025-07-19 13:46 | RADIOLOGY REPORT ---
Exam: CT CT ABDOMEN PELVIS W/ IV ORAL CONTRAST History: abdominal pain w/ bloody stools COMPARISON: None Technique: Multidetector spiral CT of the abdomen and pelvis was performed from lung bases to pubic symphysis. Intravenous contrast was administered during this examination. Portal venous imaging was obtained. Axial, coronal and sagittal multiplanar reformats were performed by the technologist on a separate workstation. Radiation Dose : 1. Abdomen/Pelvis: CTDIvol 17.1 mGy, DLP 117 mGy*cm. Findings: Lung Bases: Dependent atelectasis. Liver: Hepatic steatosis. The liver is normal in size. No focal lesions. Normal hepatic vascular enhancement. Gallbladder and Biliary Tree: Unremarkable Spleen: Unremarkable Pancreas: The pancreas is normal in appearance without focal lesions or abnormal enhancement. Adrenal Glands: Unremarkable Kidneys: No hydronephrosis. Bladder: Unremarkable Bowel: Severe diffuse colonic bowel wall thickening, most severe in the ascending and transverse colon. The stomach is grossly normal in appearance. Small bowel is normal in caliber and distribution. The appendix is not visualized; however, no secondary findings of acute appendicitis identified. Ascites: Absent Lymphadenopathy: No mesenteric, retroperitoneal or periportal lymphadenopathy. Abdominal Wall and Mesentery: Unremarkable. Vasculature: The visualized abdominal aorta is normal in size and caliber. Abdominal and pelvic vessels demonstrate normal enhancement. Pelvic Organs: Unremarkable Musculoskeletal: No aggressive focal bony lesions, acute fractures or dislocation. IMPRESSION: Severe diffuse colonic bowel wall thickening, most severe in the ascending and transverse colon. Findings are suggestive of infectious or inflammatory colitis. Radiation optimization: All CT scans at this facility use at least one of these dose optimization techniques: automated exposure control mA and/or kV adjustment per patient size (includes targeted exams where dose is matched to clinical indication) or iterative reconstruction.
[2025-07-19] MEDS ORDERED: PRED20TA PO (15:23)
[2025-07-19] MEDS ORDERED: METR-159 PO (15:23)
[2025-07-19 15:50] VITALS: BP 115/74; PULSE 78; RESP 16; TEMP 98.4; O2SAT 98
== END 2025-07-19 16:04 | disposition home or self-care (01) ==
LOC: ER 04:45
DX: K52.9 Noninfective gastroenteritis and colitis, unspecified (principal); F15.90 Other stimulant use, unspecified, uncomplicated; Z79.899 Other long term (current) drug therapy; Z87.11 Personal history of peptic ulcer disease; Z87.19 Personal history of other diseases of the digestive system; Z88.1 Allergy status to other antibiotic agents; Z88.2 Allergy status to sulfonamides; Z88.8 Allergy status to other drugs, medicaments and biological substances; Z72.89 Other problems related to lifestyle
CPT/HCPCS: 36415; 74177; 80053; 81001; 81025; 83690; 85025; 85610; 85730; 96365; 96375; 99285; J2270; J2405; J2470; J7030; Q9963; Q9967